=== PATIENT | male | born 1975 | race Two or more races ===

== ENCOUNTER → 2025-01-26 | Emergency (ER) | payer BC ==
[~2025-01-26] VITALS: Ht 172.7 cm; Wt 87.5 kg
[~2025-01-26] MED LIST: 0.9 % SODIUM CHLORIDE 1,000 ML IV ONE; FAMOTIDINE/PF 20 MG in 0.9 % SODIUM CHLORIDE 8 ML IV PUSH STA; JANUVIA100 MG PO; ROSUVASTATIN CA10 MG PO; TOPROL XL100 M1; VALSARTAN160 MG PO; ZYLOPRIM100 M1 PO
== END | disposition home or self-care (01) ==
LOC: ER 19:24
DX: T65.891A Toxic effect of other specified substances, accidental (unintentional), initial encounter (principal); Y92.89 Other specified places as the place of occurrence of the external cause